=== PATIENT | female | born 1935 | race Two or more races ===

== ENCOUNTER 2019-07-20 13:34 | Inpatient (IN) | payer MEDICAID ==
[~2019-07-20] VITALS: Ht 154.9 cm; Wt 72.6 kg
--- NOTE | 2019-07-20 13:43 | NUR ---
ED Nurse Note: Pt brought into ED s/p 3 falls yesterday. Pt fell at home, lives with family members. Pt states she hit head, but has pain in bilateral knees 01/13. ROM bilateral legs 09/08. Pt ususally walks with a walker. Pt is alert and orientedx4, ambulatory w/ assist. Set up on monitor.
[2019-07-20 14:00] VITALS: BP 137/76
[2019-07-20 14:23] LABS: EOSINOPHILS % (AUTO) 0.5 % (0.0-3.0); HEMATOCRIT 39.1 % (37.0-47.0); HEMOGLOBIN 13.6 G/DL (12.0-16.0); LYMPHOCYTES % (AUTO) 12.9 % (20.0-45.0); MEAN CORPUSCULAR VOLUME 92 FL (80-99); MONOCYTES % (AUTO) 9.1 % (1.0-10.0); NEUTROPHILS % (AUTO) 76.5 % (45.0-75.0); PLATELET COUNT 132 K/UL (150-450); RED BLOOD COUNT 4.25 M/UL (4.20-5.40); RED CELL DISTRIBUTION WIDTH 11.7 % (11.6-14.8); WHITE BLOOD COUNT 6.6 K/UL (4.8-10.8)
--- NOTE | 2019-07-20 14:30 | Diagnostic Imaging Report ---
Indication: Headache Technique: Contiguous 5 mm thick transaxial imaging of the head obtained in a Siemens Sensation [address] scanner. Soft tissue and bone windows generated. Automatic Exposure Control was utilized. Total Dose length Product (DLP): 1018.8mGycm CT Dose Index Volume (CTDIvol): 53.4 mGy Comparison: none Findings: There is mild prominence of the ventricles, basal cisterns, and cerebral sulci consistent with atrophy. Mild, nonspecific, white matter hypoattenuation is noted throughout the brain consistent with chronic small vessel disease. There is no midline shift, edema, acute hemorrhage, mass effect, or abnormal extra-axial fluid collections. Bones are unremarkable. There is mucosal thickening within the paranasal sinuses. Impression: No acute intracranial bleed, mass effect or edema. Mild atrophy of the brain. Nonspecific white matter hypoattenuation probably due to chronic small vessel disease. Mild sinusitis The CT scanner at [facility] is accredited by the [employer] and the scans are performed using dose optimization techniques as appropriate to a performed exam including Automatic Exposure control.
[2019-07-20 14:31] LABS: ANION GAP 11 mmol/L (5-15); BLOOD UREA NITROGEN 12 mg/dL (7-18); CALCIUM 9.1 MG/DL (8.5-10.1); CARBON DIOXIDE 25 MMOL/L (21-32); CHLORIDE 104 MMOL/L (98-107); CREATININE 0.7 MG/DL (0.55-1.30); POTASSIUM 3.7 MMOL/L (3.5-5.1); SODIUM 140 MMOL/L (136-145)
[2019-07-20 14:33] LABS: INR 1.1 (0.9-1.1)
--- NOTE | 2019-07-20 14:33 | Emergency Room Report ---
History of Present Illness General Chief Complaint: Multiple Trauma/Fall Source: EMS (Joo Portillo) Present Illness HPI 84-year-old female with history of type 2 diabetes and hypertension currently not taking medication brought in by niece and paramedics after falling and hitting her head twice earlier today. Patient reports that she got dizzy prior to fall. Denies loss of consciousness, nausea vomiting. Complains of blurry vision. Reports that she has been ambulating with a cane due to bilateral knee pain times many months. Has not been seen by primary doctor for a long time. Denies chest pain, shortness of breath, palpitation, unilateral generalized weakness. No slurred speech, or motor urinary lateral weakness noted. No motor or sensory deficits noted. Denies abdominal pain, urinary symptoms. Denies recent travel. Denies taking any blood thinners. (Joo Portillo) Allergies: Coded Allergies: No Known Allergies (Unverified , 07/20/19) Patient History Past Medical History: see triage record Past Surgical History: unable to obtain Pertinent Family History: none Now: No Immunizations: UTD Reviewed Nursing Documentation: PMH: Agreed; PSxH: Agreed (Joo Portillo) Nursing Documentation-PMH Past Medical History: No History, Except For Hx Hypertension: Yes Hx Diabetes: Yes (Joo Portillo) Review of Systems All Other Systems: negative except mentioned in HPI (Joo Portillo) Physical Exam Vital Signs Date Time Temp Pulse Resp B/P (MAP) Pulse Ox O2 Delivery O2 Flow Rate FiO2 07/20/19 13:34 99.0 102 14 130/66 (87) 99 Room Air 07/20/19 14:00 98 Sp02 EP Interpretation: reviewed, normal General Appearance: alert, GCS 15, non-toxic, mild distress Head: other - Ecchymosis noted on the right frontal lobe Eyes: bilateral eye normal inspection, bilateral eye PERRL ENT: hearing grossly normal, normal pharynx, no angioedema, normal voice Neck: full range of motion, supple, thyroid normal, no meningismus, no bony tend, supple/symm/no masses Respiratory: chest non-tender, lungs clear, normal breath sounds, no rhonchi, no respiratory distress, no retraction, no accessory muscle use, no wheezing, speaking full sentences Cardiovascular #1: regular rate, rhythm, no edema, no murmur Cardiovascular #2: 2+ carotid (R), 2+ carotid (L), 2+ radial (R), 2+ radial (L) Gastrointestinal: normal bowel sounds, non tender, soft, non-distended, no guarding, no rebound Rectal: deferred Genitourinary: normal inspection, no CVA tenderness Musculoskeletal: back normal, no calf tenderness, pelvis stable, swelling - bilateral knees Neurologic: alert, motor strength/tone normal, oriented x3, sensory intact, responsive, speech normal Psychiatric: judgement/insight normal, memory normal, mood/affect normal, no suicidal/homicidal ideation Skin: no rash Lymphatic: no adenopathy (Joo Portillo) Medical Decision Making PA Attestation All diagnoses and treatment plans were reviewed and discussed with my supervising physician Dr. Yuen (Joo Portillo) PA Attestation Hyper dissipate in the care of the patient along with MIKE Dang Briefly, this an 84-year-old female history of diabetes, hypertension noncompliant with current medications presents after multiple falls over the past few days with head injury. Labs in CT scan have returned largely within normal limits. She reports weakness and persistent falls. X-ray of the knee show osteoarthritic changes but no evidence of acute trauma. She will require medical admission for work-up and weakness and multiple falls. She also lives alone and sometimes take care of her elderly mother. She may require some in- home care and social work evaluation. (Wil Yuen MD) Diagnostic Impression: Primary Impression: Weakness generalized Additional Impressions: Head contusion Noncompliance with medication regimen ER Course 84-year-old female with history of type 2 diabetes and hypertension currently not taking medication brought in by niece and paramedics after falling and hitting her head twice earlier today. Patient reports that she got dizzy prior to fall. Denies loss of consciousness, nausea vomiting. Complains of blurry vision. Reports that she has been ambulating with a cane due to bilateral knee pain times many months. Has not been seen by primary doctor for a long time. Denies chest pain, shortness of breath, palpitation, unilateral generalized weakness. No slurred speech, or motor urinary lateral weakness noted. No motor or sensory deficits noted. Denies abdominal pain, urinary symptoms. Denies recent travel. Denies taking any blood thinners. Ddx considered but are not limited to: cerebral hematoma, concussion, skull fracture, head contusion, generalized weakness, TIA, CVA Vital signs: are WNL, pt. is afebrile H&PE are most consistent with: Head contusion, generalized weakness ORDERS: head CT no contrast, stroke order set ED INTERVENTIONS: NS bolus Patient was admitted with diagnosis of generalized weakness and head contusion to Dr. Salamanca under supervision of Dr.: Yuen pt stable at time of admission (Joo Portillo) EKG Diagnostic Results Rate: normal Rhythm: NSR ST Segments: no acute changes Other Impression No acute ST changes (Joo Portillo) Chest X-Ray Diagnostic Results Chest X-Ray Diagnostic Results : Chest X-Ray Ordered: Yes # of Views/Limited/Complete: 1 View Indication: Other EP Interpretation: Yes PA Xray: Interpretation reviewed, by supervising MD, and agrees with findings. Interpretation: no consolidation, no effusion, no pneumothorax Impression: No acute disease Electronically Signed by: Joo Patiño PA-C (Joo Portillo) Other X-Ray Diagnostic Results Other X-Ray Diagnostic Results #1: X-Ray ordered: Right knee # of Views/Limited Vs Complete: 3 View Indication: Pain EP Interpretation: Yes PA Xray: Interpretation reviewed, by supervising MD, and agrees with findings. Interpretation: no dislocation, no soft tissue swelling, no fractures Impression: No acute disease Electronically Signed by: Joo MCKEON Scribe Text Arthritis noted Other X-Ray Diagnostic Results #2: X-Ray ordered: Left knee # of Views/Limited Vs Complete: 3 View Indication: Pain EP Interpretation: Yes PA Xray: Interpretation reviewed, by supervising MD, and agrees with findings. Interpretation: no dislocation, no soft tissue swelling, no fractures Impression: No acute disease Electronically Signed by: Joo MCKEON Scribe Text Osteoarthritis noted (Joo Portillo) CT/MRI/US Diagnostic Results CT/MRI/US Diagnostic Results : Imaging Test Ordered: Head CT no contrast Impression No intracranial bleed, no skull fracture (Joo Portillo) Last Vital Signs Date Time Temp Pulse Resp B/P (MAP) Pulse Ox O2 Delivery O2 Flow Rate FiO2 07/20/19 14:00 97 18 Room Air 98 07/20/19 14:00 99.0 137/76 98 (Joo Portillo) Disposition: ADMITTED INPATIENT Condition: Stable Referrals: NOT CHOSEN IPA/,REFERRING (PCP) Joo Portillo Jul 20, 2019 14:33 Wil Yuen MD Jul 20, 2019 15:53
[2019-07-20 14:41] LABS: ALANINE AMINOTRANSFERASE 36 U/L (12-78); ALBUMIN 3.2 G/DL (3.4-5.0); ALBUMIN/GLOBULIN RATIO 0.9 (1.0-2.7); ALKALINE PHOSPHATASE 98 U/L (46-116); ASPARTATE AMINO TRANSFERASE 45 U/L (15-37); BILIRUBIN,TOTAL 0.5 MG/DL (0.2-1.0)
--- NOTE | 2019-07-20 14:50 | Diagnostic Imaging Report ---
Indication: Right knee Pain 3 views of the right knee were obtained. Findings: No acute fracture, malalignment, or joint effusion are identified. There is severe osteoarthritis of the knee characterized by osteophyte formation and joint space narrowing especially in the medial compartment and patellofemoral compartment. The bones are osteopenic. Arterial calcium noted. IMPRESSION: No acute injury appreciated. Severe osteoarthritis
--- NOTE | 2019-07-20 14:50 | Diagnostic Imaging Report ---
INDICATION: Knee Pain COMPARISON: None 3 views of the left knee were obtained. FINDINGS: No acute fracture is identified. Alignment is normal. There is severe osteoarthritis of the knee characterized by joint space narrowing and marginal osteophyte formation. Faint arterial calcifications are present within the tibial arteries. No joint effusion seen. IMPRESSION: No acute injury identified. Severe osteoarthritis
--- NOTE | 2019-07-20 14:51 | Diagnostic Imaging Report ---
Indication: Dyspnea Comparison: None A single view chest radiograph was obtained. Findings: No definite infiltrate or pulmonary vascular congestion identified. The heart is normal size. The aorta is mildly enlarged consistent with atherosclerotic vascular disease. The bones are osteopenic. Impression: No acute disease
[2019-07-20 15:59] LABS: APPEARANCE,URINE VERY CLOUDY; BILIRUBIN, URINE NEGATIVE (NEGATIVE); GLUCOSE, URINE (UA) NEGATIVE (NEGATIVE); KETONES,URINE NEGATIVE (NEGATIVE); LEUKOCYTE ESTERASE ,URINE NEGATIVE (NEGATIVE); NITRITE,URINE NEGATIVE (NEGATIVE); PH,URINE 8 (4.5-8.0); PROTEIN,URINE NEGATIVE (NEGATIVE); UROBILINOGEN,URINE NORMAL MG/DL (0.0-1.0)
[2019-07-20 16:14] LABS: COLOR,URINE YELLOW
[2019-07-20 16:55] VITALS: BP 108/70
--- NOTE | 2019-07-20 16:55 | NUR ---
NURSE NOTES: Patient came to unit by ben in stable condition. Alert and oriented x4. No complain of pain or distress at this time. Skin intact and dry. IV dressing intact and dry. Belonging check. Bed lowest position. Call light within reach. Will continue to monitor.
--- NOTE | 2019-07-20 18:08 | NUR ---
NURSE NOTES: Called and spoke to Dr. Salamanca for admission order. Per : "I will call back."
[2019-07-20] MEDS ORDERED: Miralax 17gm pkt ORAL PRN (18:30)
--- NOTE | 2019-07-20 18:40 | NUR ---
NURSE NOTES: Spoke to regarding admission order and new order received. Order read back and carried out.
--- NOTE | 2019-07-20 19:30 | NUR ---
HAND-OFF: Report given to Quita COLEMAN. Patient in stable condition.
[2019-07-20] MEDS: Heparin 5000 units/ml inj SUBQ SCH (21:00)
[2019-07-20 21:04] VITALS: BP 108/66
--- NOTE | 2019-07-20 21:19 | NUR ---
NURSE NOTES: Pt is alert and oriented x4, verbally responsive and Argentine speaking. No complain of pain or distress at this time. Skin intact and dry. IV dressing intact and dry. Fall precaution is in place. Bed in low and locked position. Bed alarm is on with high sensitive setting. Side rails two up. Call light within reach. Will continue to monitor.
[2019-07-20] MEDS: Acetaminophen 500mg (ES) tab ORAL SCH (21:51)
[2019-07-21] VITALS (7 sets, daily range): BP systolic 110–142; BP diastolic 65–80
[2019-07-21] MEDS: Acetaminophen 500mg (ES) tab ORAL SCH ×3 (05:30→21:25)
[2019-07-21] MEDS: Nateglinide 60mg tab ORAL SCH ×2 (06:15→11:43)
--- NOTE | 2019-07-21 08:03 | NUR ---
NURSE NOTES: Patient alert x3, confused; on room air, no sing of distress and shortness of breath; no sing of chest pain; IV Left-Wrist 24G flushes well; patient high fall risk, bed alarm on, side rails up x2, breaks engaged, bed at lowest position; fall percussions taken, sign at the door, skilled nursing case manager Jony notified; call light within reach; will keep monitoring and do frequent rounds;
[2019-07-21] MEDS: Heparin 5000 units/ml inj SUBQ SCH ×2 (09:00→21:00)
[2019-07-21] MEDS ORDERED: Losartan 50mg tab ORAL SCH (09:00)
[2019-07-21] MEDS ORDERED: metFORMIN 500mg tab ORAL SCH (09:00)
--- NOTE | 2019-07-21 09:30 | NUR ---
NURSE NOTES: Patient's daughter at the bed side; patient on bed, bed alarm on, side rails up x2, breaks engaged; fall percussion teaching given to patient's daughter; will keep monitoring.
--- NOTE | 2019-07-21 10:30 | NUR ---
NURSE NOTES: Patient is working with PT on the [address];
--- NOTE | 2019-07-21 10:30 | NUR ---
NURSE NOTES: Patient's daughter brought patient's home medication; I called MD Salamanca to let him know the list of patient's home medications; MD Salamanca said, will come and see patient. Waiting for order.
--- NOTE | 2019-07-21 11:10 | NUR ---
NURSE NOTES: Patient had visitors; patient on bed, bed alarm on, breaks engaged, bed at lowest position; call light within reach; will keep monitoring.
--- NOTE | 2019-07-21 11:57 | NUR ---
PT Note PT lenny completed, treatment initiated. Patient has bilateral knee pain with decreased LE muscle strength and antalgic gait pattern. Patient needs physical therapy to increase her muscle strength and balance to to improve her safety in mobility and gait to enable her to return to PLOF and to home. Addendum: 07/21/19 at 1158 by PINKY FARLEY PT Amended: Links added.
[2019-07-21] MEDS: metFORMIN 500mg tab ORAL SCH (17:33)
[2019-07-21] MEDS: QVAR 80mcg Inh - 8.7gm INH SCH (18:00)
[2019-07-21] MEDS: Diclofenac 75mg tab ORAL SCH (18:13)
[2019-07-21] MEDS: Albuterol ud Inhalation HHN SCH ×2 (19:00→23:28)
--- NOTE | 2019-07-21 19:09 | NUR ---
HAND-OFF: Report given to VIRGINIA Harry.
--- NOTE | 2019-07-21 19:52 | NUR ---
NURSE NOTES: Pt is in bed, awake, alert, oriented x3 and confused. Verbally responsive and Turkish speaking. Breathing on room air, no respiratory distress noted. No complain of pain or distress at this time. Skin intact and dry. Fall precaution is in place. Sign at the door. Bed in low and locked position. Bed alarm is on with high sensitive setting. Side rails two up. Call light within reach. Will continue to monitor and do frequent rounds.
--- NOTE | 2019-07-21 23:30 | History and Physical Report ---
DATE OF ADMISSION: 07/20/2019 CHIEF COMPLAINT AND REASON FOR HOSPITALIZATION: The patient was admitted with recurrent falls. HISTORY OF PRESENT ILLNESS: The patient is an 84-year-old lady. History was taken with the family at the bedside. She has had 2 or 3 falls in the last 2 days and has difficulty walking at home. She uses a walker. She has severe arthritis of the knees. There is a history of diminished hearing, mild blurry vision, and gastritis. ALLERGIES: None known. HOME MEDICATIONS: Include meclizine 25 mg p.r.n., diclofenac 75 mg b.i.d., and vitamin D 1000 units daily. She also had blood pressure and diabetes medicines, but they do not bring them to the hospital. I do not know what she was taking. HABITS: Nondrinker and nonsmoker. SURGERIES: Gallbladder and hernia. SYSTEM REVIEW: HEAD, EYES, EARS, NOSE, AND THROAT: She has decreased vision. Decreased hearing. Some dizziness and headache. ENDOCRINE: No known thyroid disease. History of diabetes. PULMONARY: She is coughing and has bronchitis. Currently, no chronic cough or asthma. CARDIAC: No angina or [place]. There is a history of hypertension. She has had atypical chest pain. GASTROINTESTINAL: She has had gastritis. No recent nausea, vomiting, or abdominal pain. GENITOURINARY: No dysuria or hematuria. She states she incompletely voids. NEUROLOGICAL: No CVA or seizures. She has had some dizzy spells. PHYSICAL EXAMINATION: GENERAL: The patient is alert and obese lady. VITAL SIGNS: Temperature 91 degrees, pulse 69, respirations 19, and blood pressure 123/68. HEAD, EYES, EARS, NOSE, AND THROAT: Sclerae are nonicteric. Ocular motions intact in all directions. Oral mucosa moist. NECK: No adenopathy. LUNGS: Faint expiratory wheeze. HEART: Regular rhythm. No murmur. ABDOMEN: Soft without organomegaly or masses. EXTREMITIES: No edema, cyanosis, or clubbing. There is moderate to severe DJD of the knees. NEUROLOGICAL: She is alert, responsive, and appropriate. Ocular motions intact in all directions. Smile symmetric. Tongue is midline. She moves all extremities. Gait is tested. She needs assistance to go from sitting to standing and needs to hold onto a walker. She is unsteady to walk without a walker. IMPRESSION: 1. Recurrent falls, likely secondary to severe osteoarthritis. 2. Dizziness, possibly benign vertigo. 3. History of gastritis. 4. Osteoarthritis. 5. Hypertension per history. 6. Diabetes. PLAN: She needs to be placed on a medication regimen for all of the above, which is ordered. There is a disposition issue, also inability to care for herself. Discussed with the family. I will contact social security benefits interviewer. She also has some wheezing and asthma with a negative chest x-ray and will be given inhalers. Rodger Salamanca M.D. DR: Sandra JOB#: [id number] CC:
[2019-07-22 04:00] VITALS: BP 117/60
[2019-07-22] MEDS: Albuterol ud Inhalation HHN SCH ×3 (04:07→11:58)
[2019-07-22] MEDS: Acetaminophen 500mg (ES) tab ORAL SCH (05:20)
[2019-07-22] MEDS: metFORMIN 500mg tab ORAL SCH (06:26)
--- NOTE | 2019-07-22 07:38 | NUR ---
NURSE NOTES: Received report from Quita COLEMAN, pt a/a/o seating in chair eating breakfast with no signs of distress or other issues at this time. no skin issues noted. IV on the left wrist gauge#24 heplock. pt is able to ambulate with staff assistance and the use of a FWW. call light within reach, bed in lowest position, side rales up x2. I will f/u as needed.
--- NOTE | 2019-07-22 07:39 | NUR ---
HAND-OFF: Report given to VIRGINIA Villafuerte. Endorsed about high fall risk status to oncoming shift. Fall precaution is in place. Bed alarm is on,bed in low and locked position. call light within reach.
[2019-07-22 08:00] VITALS: BP 151/87
[2019-07-22] MEDS: Diclofenac 75mg tab ORAL SCH (08:29)
[2019-07-22] MEDS: Heparin 5000 units/ml inj SUBQ SCH (08:30)
[2019-07-22] MEDS: QVAR 80mcg Inh - 8.7gm INH SCH (09:54)
[2019-07-22 12:00] VITALS: BP 109/62
[2019-07-22] MEDS ORDERED: BECLOMETHASONE 80 MCG (13:24)
[2019-07-22] MEDS ORDERED: VOLTAREN75 MG ORAL (13:24)
--- NOTE | 2019-07-22 14:30 | NUR ---
NURSE NOTES: Received orders to discharge. Discharge instructions and belongings list given to patient and pt's daughter. IV removed removed prior to d/c. Also given FWW from central supply closet. pt left with no signs of distress or other issues at this time. pt's daughter and pt's grand-daughter will provide transportation. I will f/u as needed.
--- NOTE | 2019-07-23 11:45 | Discharge Summary ---
DATE OF ADMISSION: 07/20/2019 DATE OF DISCHARGE: 07/22/2019 PERTINENT HISTORY: The patient is an 84-year-old lady, who has had recurrent falls at home. There was some dizziness. She states she has diabetes and hypertension. PERTINENT PHYSICAL FINDINGS: LUNGS: Showed faint expiratory wheezing. HEART: Regular rhythm. ABDOMEN: Soft. No organomegaly. EXTREMITIES: Show ygifulbt-bl-wienyo arthritis in the knees. NEUROLOGIC: Negative. COURSE IN THE HOSPITAL: The patient's blood pressure was normal off of medications and her sugars remained normal. She has osteoarthritis. She was given comfort measures. She was able to walk with a walker. Safety shoes was discussed with the family. She was discharged home in stable condition. FINAL DIAGNOSES: 1. Recurrent falls due to osteoarthritis. 2. Dizziness, possible benign positional vertigo. No specific therapy needed. 3. Osteoarthritis. 4. The patient states history of diabetes, sugars normal. 5. Hypertension per family. 6. Blood pressure normal. DISCHARGE DISPOSITION: Home on a regular diet. Diclofenac 75 mg b.i.d., vitamin D 1000 units daily, meclizine 25 mg p.r.n., and beclomethasone inhaler two puffs b.i.d. Follow up with prior to admission physician. Rodger Salamanca M.D. DR: Hawa JOB#: [id number] CC:
--- NOTE | 2019-07-27 11:01 | NUR ---
CASE MANAGEMENT: INITIAL REVIEW 84 YR OLD FEMALE FROM HOME CC: MULTIPLE TRAMA . FALLS SI:MULTIPLE FALLS . WEAKNESS . HEAD CONTUSION . NON COMPLIANCE TO MEDICATION REGIMEN 99.0 102 14 130/66 99% ON RA BG 188 AST 45 BNP 585 PLT 132 IS:IVF NS BOLUS X1 HEAD CT-Mild atrophy of the brain. KNEE X-RAY X2-Severe osteoarthritis TIFFANY CHEST X-RAY X1- CLEAR \: 3E MED SURG UNIT DCP: HOME WHEN STABLE
== END 2019-07-22 14:45 | disposition home or self-care (01) | DRG 111 ==
LOC: EDBD 13:34 → EMR 13:55 → 3E 14:14 → EDBEDREQ 15:19
DX: H81.10 Benign paroxysmal vertigo, unspecified ear (principal); M17.0 Bilateral primary osteoarthritis of knee; R29.6 Repeated falls; R51 Headache; I10 Essential (primary) hypertension; E11.9 Type 2 diabetes mellitus without complications
CPT/HCPCS: 36415; 70450; 71045; 80053; 81003; 82962; 83880; 84484; 85025; 85610; 85730; 93005; 94640; 94664; 96360; 99285

== ENCOUNTER 2019-10-01 15:27 | Emergency (ER) | payer MEDICAID ==
[~2019-10-01] VITALS: Ht 149.9 cm; Wt 70.3 kg
[~2019-10-01 15:27] MED LIST: BECLOMETHASONE 80 MCG; VOLTAREN75 MG ORAL
--- NOTE | 2019-10-01 15:50 | NUR ---
ED Nurse Note: pt presents to ED s/p fall 2 weeks ago. per pt's daughter, she fell in the bathub and hit the back of her head. LOC unk but pt has had persistent pain to the back of her head since then. skin on scalp appears to be clean dry and intact, VSS, pt is ambulatory with walker.
[2019-10-01 15:51] VITALS: BP 140/78
[2019-10-01] MEDS ORDERED: METFORMIN HCL500 M1 ORAL (15:56)
[2019-10-01] MEDS ORDERED: MECLIZINE HCL25 MG ORAL (15:56)
[2019-10-01] MEDS ORDERED: FOSAMAX70 MG ORAL (15:56)
--- NOTE | 2019-10-01 16:00 | NUR ---
ED Nurse Note: pt taken to CT
--- NOTE | 2019-10-01 16:15 | NUR ---
ED Nurse Note: pt returned from CT, placed back on cardicc monitor
--- NOTE | 2019-10-01 16:31 | Emergency Room Report ---
History of Present Illness General Chief Complaint: Head Injury Source: Patient, Family Member Present Illness HPI 84-year-old Northern Irish-speaking female with history of diabetes currently controlled here complaining of headache x2 weeks after a fall and hitting her head in the bathtub 2 weeks ago. Denies any loss of consciousness or dizziness. Daughter is in the waiting room and reports that she has been acting differently for the past 2 weeks however has not yet seen primary doctor. Also reports that she has been forgetful more than usual. Patient sitting comfortably see vital signs. Denies any chest pain, cough, congestion, shortness of breath, abdominal pain, nausea vomiting, fever or chills. Denies any unilateral or generalized weakness. Neurovascularly intact. Head appears to be atraumatic. Patient speaks in full sentences, and responds well to questions without any delay. Ambulatory within normal limits Patient reports that she slipped and fell denies any dizziness prior to fall Allergies: Coded Allergies: No Known Allergies (Unverified , 07/20/19) COVID-19 Screening Contact w/high risk pt: No Recent Travel to affected area: No Experienced COVID-19 symptoms?: No Patient History Limited by: language barrier Past Medical History: see triage record Past Surgical History: unable to obtain Pertinent Family History: none Last Menstrual Period: na Now: No Immunizations: UTD Reviewed Nursing Documentation: PMH: Agreed; PSxH: Agreed Nursing Documentation-PMH Past Medical History: No History, Except For Hx Cardiac Problems: Yes Hx Hypertension: Yes Hx Diabetes: Yes Hx Cancer: No Hx Gastrointestinal Problems: No Hx Neurological Problems: No Review of Systems All Other Systems: negative except mentioned in HPI Physical Exam Vital Signs Date Time Temp Pulse Resp B/P (MAP) Pulse Ox O2 Delivery O2 Flow Rate FiO2 10/01/19 15:36 99.0 90 20 140/78 (98) 96 Sp02 EP Interpretation: reviewed, normal General Appearance: no apparent distress, alert, GCS 15, non-toxic Head: normocephalic, atraumatic Eyes: bilateral eye normal inspection, bilateral eye PERRL ENT: hearing grossly normal, normal pharynx, no angioedema, normal voice Neck: full range of motion, supple/symm/no masses Respiratory: chest non-tender, lungs clear, normal breath sounds, no rhonchi, speaking full sentences Cardiovascular #1: regular rate, rhythm, no edema Gastrointestinal: non tender Genitourinary: no CVA tenderness Musculoskeletal: back normal Psychiatric: judgement/insight normal Skin: no rash Lymphatic: no adenopathy Medical Decision Making PA Attestation All my diagnosis and treatment plans were reviewed ad discussed with my supervising physician Dr. Crow Diagnostic Impression: Primary Impression: Head contusion Additional Impression: Memory impairment ER Course 84-year-old Northern Irish-speaking female with history of diabetes currently controlled here complaining of headache x2 weeks after a fall and hitting her head in the bathtub 2 weeks ago. Denies any loss of consciousness or dizziness. Daughter is in the waiting room and reports that she has been acting differently for the past 2 weeks however has not yet seen primary doctor. Also reports that she has been forgetful more than usual. Patient sitting comfortably see vital signs. Denies any chest pain, cough, congestion, shortness of breath, abdominal pain, nausea vomiting, fever or chills. Denies any unilateral or generalized weakness. Neurovascularly intact. Head appears to be atraumatic. Patient speaks in full sentences, and responds well to questions without any delay. Ambulatory within normal limits. Patient reports that she slipped and fell denies any dizziness prior to fall Ddx considered but are not limited to: cerebral hematoma, concussion, skull fracture, head contusion, dementia, stroke Vital signs: are WNL, pt. is afebrile H&PE are most consistent with: Head contusion, memory impairment ORDERS: head CT no contrast, Tylenol ED INTERVENTIONS: None required at this time. DISCHARGE: At this time pt. is stable for d/c to home. Will provide printed patient care instructions, and any necessary prescriptions. Care plan and follow up instructions have been discussed with the patient prior to discharge. Patient to follow primary doctor for MRI and further evaluation of confusion and memory impairment also need to having home health. If worsening symptoms return to emergency room at this time since this is 2 weeks later and patient sitting comfortably with normal vital signs and head appears atraumatic and patient speaking full sentences no further evaluation is needed. CT/MRI/US Diagnostic Results CT/MRI/US Diagnostic Results : Imaging Test Ordered: ct head no contrast Impression No intracranial bleed, no acute changes, Last Vital Signs Date Time Temp Pulse Resp B/P (MAP) Pulse Ox O2 Delivery O2 Flow Rate FiO2 10/01/19 15:51 99.0 88 20 140/78 98 Disposition: HOME, SELF-CARE Condition: Stable Referrals: NON PHYSICIAN (PCP) Patient Instructions: Facial or Scalp Contusion, [id number] Additional Instructions: At this time pt. is stable for d/c to home. Will provide printed patient care instructions, and any necessary prescriptions. Care plan and follow up instructions have been discussed with the patient prior to discharge. Patient to follow primary doctor for MRI and further evaluation of confusion and memory impairment also need to having home health. If worsening symptoms return to emergency room at this time since this is 2 weeks later and patient sitting comfortably with normal vital signs and head appears atraumatic and patient speaking full sentences no further evaluation is needed. Joo Portillo Oct 01, 2019 16:31
--- NOTE | 2019-10-01 16:42 | Diagnostic Imaging Report ---
Indications: Loss of consciousness, persistent pain to back of head after fall in the bathtub hitting the back of her head Technique: Spiral acquisitions obtained through the brain. Angled axial and coronal 5 x 5 mm slices were reconstructed. Total dose length product 1114 mGycm. CTDI vol(s) 53 mGy. Dose reduction achieved using automated exposure control Comparison: 07/20/2019 Findings: There is age-related enlargement of the ventricles and extra axial CSF spaces. There is periventricular deep white matter low-attenuation, consistent with chronic microvascular ischemic changes. There is no left frontal deep white matter infarct. Otherwise normal craig-white differentiation. Visualized orbits and sinuses are unremarkable. The mastoids are clear. Impression: Chronic and age-related changes Negative for acute intracranial bleed or mass effect The CT scanner at [facility] is accredited by the [employer] and the scans are performed using protocols designed to limit radiation exposure to as low as reasonably achievable to attain images of sufficient resolution adequate for diagnostic evaluation.
[2019-10-01] MEDS ORDERED: TYLENOL EXTRA500 MG ORAL (16:46)
[2019-10-01 16:50] VITALS: BP 140/78
--- NOTE | 2019-10-01 16:50 | NUR ---
ER DISCHARGE NOTE: Patient is cleared to be discharged per ERMD, pt is aox4, on room air, with stable vital signs. pt was given dc and prescription instructions, pt was able to verbalize understanding, pt id band removed without complications. pt is able to ambulate with steady gait. pt took all belongings.
== END 2019-10-01 16:50 | disposition home or self-care (01) ==
LOC: EMR 15:45
DX: S00.93XA Contusion of unspecified part of head, initial encounter (principal); R41.3 Other amnesia; W18.2XXA Fall in (into) shower or empty bathtub, initial encounter; Y92.9 Unspecified place or not applicable; I10 Essential (primary) hypertension; E11.9 Type 2 diabetes mellitus without complications
CPT/HCPCS: 70450; Z7502; 99284